=== PATIENT | male | born 1950 | race Caucasian/White ===

== ENCOUNTER 2017-11-13 16:27 | Emergency (ER) | payer MEDICARE ==
[~2017-11-13] VITALS: Ht 182.9 cm; Wt 93.0 kg
[2017-11-13 16:31] VITALS: BP 140/75
== END 2017-11-13 18:34 | disposition left against medical advice (07) ==
LOC: ER 17:01
DX: H57.12 Ocular pain, left eye (principal); Z53.21 Procedure and treatment not carried out due to patient leaving prior to being seen by health care provider

== ENCOUNTER 2017-11-15 04:03 | Emergency (ER) | payer MEDICARE ==
[~2017-11-15] VITALS: Ht 180.3 cm; Wt 94.0 kg
[2017-11-15 09:35] VITALS: BP 122/54
== END 2017-11-15 09:58 | disposition home or self-care (01) ==
LOC: ER 04:03
DX: S05.02XA Injury of conjunctiva and corneal abrasion without foreign body, left eye, initial encounter (principal); F17.200 Nicotine dependence, unspecified, uncomplicated; F31.9 Bipolar disorder, unspecified; Z98.890 Other specified postprocedural states; Y08.89XA Assault by other specified means, initial encounter; Y93.89 Activity, other specified; Y92.240 Courthouse as the place of occurrence of the external cause
CPT/HCPCS: 70486; 99284